=== PATIENT | male | born 1955 | race Caucasian/White ===

== ENCOUNTER 2021-05-02 10:14 | Outpatient (REF) | payer MEDICARE, SELFPAY ==
[2021-05-02 11:58] LABS: Alanine Aminotransferase 29 U/L (0-40); Albumin Level 4.5 g/dL (3.5-5.0); Alkaline Phosphatase 61 U/L (39-117); Anion Gap 12 (12-20); Aspartate Amino Transferase 34 U/L (5-37); Bilirubin Total 0.9 mg/dL (0.0-1.0); Blood Urea Nitrogen 14 mg/dL (9-16); Calcium 9.3 mg/dL (8.4-10.2); Carbon Dioxide 27 mmol/L (22-29); Chloride 104 mmol/L (96-108); Cholesterol 177 mg/dL; Estimated Glomerular Filt Rate > 60; Glucose Random 102 mg/dL (60-115); HDL Cholesterol 55 mg/dL; LDL Cholesterol Calculated 111 mg/dl; Potassium 4.4 mmol/L (3.3-5.1); Sodium 139 mmol/L (135-145); Total Protein 7.1 g/dL (6.5-8.0); Triglycerides 57 mg/dL
[2021-05-02 12:02] LABS: Prostate Specific Antigen Scr 3.17 ng/mL (<0.05-4.0)
== END 2021-05-02 10:15 | disposition home or self-care (01) ==
LOC: HO.HMGCLDS 10:14
PROVIDERS: PCP Internal Medicine; Visit Provider Internal Medicine
DX: Z12.5 Encounter for screening for malignant neoplasm of prostate (principal)
CPT/HCPCS: 36415; 80053; 80061; 84153

== ENCOUNTER 2022-01-01 16:15 | Emergency (ER) | payer MEDICARE, SELFPAY ==
[2022-01-01 16:38] VITALS: BP 139/72; PULSE 74; RESP 18; TEMP 36.7; O2SAT 97; BMI 23.8
--- NOTE | 2022-01-01 18:25 | ED_ITS ---
HPI - General Adult General Chief complaint: General Medical Stated complaint: allergies Time Seen by Provider: 01/01/22 18:18 Source: patient Mode of arrival: ambulatory Limitations: no limitations History of Present Illness HPI narrative: 66 yold male presents to the ED for allergic reaction. Patient presents to the ED for itchy rash on abdomen, trunk, and and legs after going into po[facility] [facility] 10 days ago. Patietn denies any coughing, lip/tongue swelling, fever, chills, or senstion of throat closing. Related Data Home Medications Medication Instructions Recorded Confirmed famotidine 10 mg tablet 5 mg PO DAILY PRN tab 04/29/20 05/02/21 Previous Rx's Medication Instructions Recorded diphenhydramine HCl 25 mg capsule 25 mg PO TID PRN 7 Days #21 cap 01/01/22 (Benadryl) famotidine 20 mg tablet (Pepcid) 20 mg PO BID 7 Days #14 tab 01/01/22 prednisone 20 mg tablet 60 mg PO DAILY 5 Days #15 tab 01/01/22 Allergies Allergy/AdvReac Type Severity Reaction Status Date / Time Penicillins [PENICILLINS] Allergy Unknown SWELLING Verified 01/01/22 16:38 Review of Systems Review of Systems: ithcy rash Yes all other systems are reviewed and are negative PMFSH Past Medical History Medical History Anxiety Anxiety BPH (benign prostatic hyperplasia) BPH (benign prostatic hyperplasia) Normal colonoscopy Family History Family History Father No problems noted. Mother No problems noted. Social History Social History Household Members: Spouse Advance Directives: No Advance Directives Information Provided: No Physical Exam ED Vital Signs: Vital Signs - 24 hr 01/01/22 16:38 01/01/22 19:04 Temperature 98.1 F 98 F Pulse Rate 74 70 Respiratory Rate 18 18 Blood Pressure 139/72 132/84 Pulse Oximetry 97 98 BMI result Body Mass Index 23.8 Const General: cooperative, healthy appearing, comfortable, no acute distress, well developed, alert, awake and Physically active Orientation/consciousness: patient oriented x3 HENMT Other: negative for any lip swelling, tongue swelling, or uvula swelling Head: Yes normal to inspection, Yes No palpable skull fracture present, Yes normocephalic, Yes atraumatic and No abrasion Eyes General: appearance normal, both eyes and all related structures Neck Neck: Yes normal visual inspection, Yes full ROM, Yes no lymphadenopathy, Yes no meningeal signs, Yes trachea midline, Yes supple, No anterior neck swelling and No tender Chest Chest palpation & inspection: normal inspection of the chest and normal palpation of entire chest wall Resp Effort & Inspection: normal respiratory effort and able to speak in complete sentences Auscultation: clear to auscultation bilaterally Cardio Jugular venous distension: no JVD Heart sounds: S1 normal heart sound present and S2 normal heart sound present GI Inspection: Yes normal to inspection and No abdominal wall ecchymosis Palpation (GI): Soft to palpation, not firm, nontender, no guarding and not rigid General: No CVA tenderness and Yes no CVA tenderness Back/Spine/Pelvis Back: no CVA tenderness, No CVA tenderness and No back tenderness Skin Other: Uticaria rash on trunk/back, and lower extremities. Neuro General: patient oriented x3, gait normal, no meningeal signs and CN's II-XI intact bilaterally Cranial nerves: Yes CN's II-XII intact bilaterally Extrem General: Yes normal to inspection and Yes full ROM Psych Appearance: grossly normal, well kempt and not disheveled Course Course Course Narrative: Uticaria. NO respiratory distress. no erythema multiforme bull's eye rash for tic Reevaluation(s) Reevaluation #1: Discharged with bendryl, pepcid and predniose Time: 18:48 Medical Decision Making [facility] Narrative Medical decision making narrative: uticaria, [place] Discharge Plan Discharge Clinical Impression: Allergic reaction, Allergy to poison madelyn Patient Disposition: Home, Self-Care Instructions: Poison [place] (ED), General Allergic Reaction (ED) Additional Instructions: Return to the ED for worsening rash, lip swelling, tongue swelling, sensation of throat closing, chest pain, fever, chills, or any other concerning symptoms. You will be discharged with meds. Please follow up with PCP Prescriptions: New famotidine [Pepcid] 20 mg tablet 20 mg PO BID 7 Days Qty: 14 0RF prednisone 20 mg tablet 60 mg PO DAILY 5 Days Qty: 15 0RF diphenhydramine HCl [Benadryl] 25 mg capsule 25 mg PO TID PRN (Reason: allergic reaction) 7 Days Qty: 21 0RF No Action famotidine 10 mg tablet 5 mg PO DAILY PRN0RF Referrals: Carmen Ly MD [Primary Care Provider] - (Allergic reaction. poison MADELYN) Interventions: ED Discharge Assessment Last Done: 01/01/22 19:05 Discharge Date/Time: 01/01/22 19:06 Print Language: Korean
[2022-01-01 19:04] VITALS: BP 132/84; PULSE 70; RESP 18; TEMP 36.6; O2SAT 98
== END 2022-01-01 19:06 | disposition home or self-care (01) ==
PROVIDERS: Emergency Provider Internal Medicine; PCP Internal Medicine
DX: L23.7 Allergic contact dermatitis due to plants, except food (principal)
CPT/HCPCS: 99283

== ENCOUNTER 2022-05-03 09:39 | Outpatient (REF) | payer MEDICARE, SELFPAY ==
[2022-05-03 11:13] LABS: MANUAL DIFF FLAG NO
[2022-05-03 11:14] LABS: Appearance Urine Clear; Color Urine Yellow; Glucose Urine UA Negative (Negative); Leukocyte Esterase Urine Negative (Negative); Nitrite Urine Negative (Negative); PH 6.5 (5.0-9.0); Specific Gravity - Urine 1.015 (1.005-1.025); Urine Blood Negative (Negative); Urine Ketones Negative (Negative); Urine Protein Negative (Neg-Trace)
[2022-05-03 11:16] LABS: Basophils Percent Auto 0.8 % (0-2); Eosinophils Absolute Auto 0.1 X10*3/uL (0.0-0.4); Eosinophils Percent Auto 2.4 % (0-4); Hematocrit 43.8 % (42.0-52.0); Hemoglobin 15.3 g/dl (14.0-18.0); Lymphocytes Absolute Auto 1.3 X10*3/uL (1.2-4.9); Lymphocytes Percent Auto 33.8 % (20-40); Mean Corpuscular HGB Conc 34.9 g/dl (31.0-36.0); Mean Corpuscular Hemoglobin 31.6 pg (27.0-33.0); Mean Corpuscular Volume 90.5 fL (80.0-98.0); Mean Platelet Volume 9.4 fL (9.4-12.4); Monocytes Absolute Auto 0.4 X10*3/uL (0.1-1.2); Monocytes Percent Auto 10.9 % (2-11); Neutrophils Percent Auto 52.1 % (45-73); Platelet Count 245 X10*3/uL (160-400); Red Blood Count 4.84 X10*6/uL (4.60-5.80); Red Cell Distribution Width 12.5 % (11.0-16.0); White Blood Count 3.8 X10*3/uL (4.8-10.8)
[2022-05-03 11:41] LABS: Alanine Aminotransferase 23 U/L (0-40); Albumin Level 4.4 g/dL (3.5-5.0); Alkaline Phosphatase 56 U/L (39-117); Anion Gap 13 (12-20); Aspartate Amino Transferase 32 U/L (5-37); Bilirubin Total 0.5 mg/dL (0.0-1.0); Blood Urea Nitrogen 12 mg/dL (9-16); Calcium 9.5 mg/dL (8.4-10.2); Carbon Dioxide 29 mmol/L (22-29); Chloride 103 mmol/L (96-108); Cholesterol 174 mg/dL; Estimated Glomerular Filt Rate > 60; Glucose Fasting 101 mg/dL (60-99); HDL Cholesterol 57 mg/dL; LDL Cholesterol Calculated 105 mg/dl; Potassium 4.7 mmol/L (3.3-5.1); Sodium 140 mmol/L (135-145); Triglycerides 62 mg/dL
[2022-05-03 12:03] LABS: PSA,Total (Free>4and<10) 2.38 ng/mL (0.00-4.00)
== END 2022-05-03 09:40 | disposition home or self-care (01) ==
LOC: HO.HMGCLDS 09:39
PROVIDERS: PCP Internal Medicine; Visit Provider Internal Medicine
DX: Z00.00 Encounter for general adult medical examination without abnormal findings (principal); N40.0 Benign prostatic hyperplasia without lower urinary tract symptoms; F41.9 Anxiety disorder, unspecified; Z12.5 Encounter for screening for malignant neoplasm of prostate
CPT/HCPCS: 36415; 80053; 80061; 81003; 84153; 85025

== ENCOUNTER 2023-01-31 09:14 | Emergency (ER) | payer MEDICARE, SELFPAY ==
[2023-01-31 09:16] VITALS: BP 133/83; PULSE 66; RESP 18; TEMP 36.6; O2SAT 97; BMI 24.3
[2023-01-31 09:28] VITALS: BP 145/77; PULSE 64; RESP 18; TEMP 36.4; O2SAT 96
--- NOTE | 2023-01-31 09:28 | ED.DIZZY ---
HPI - Dizziness General Chief Complaint: Dizziness Stated Complaint: Nausea Dizzy Time Seen by Provider: 01/31/23 09:26 Source: patient Mode of arrival: ambulatory Limitations: language barrier History of Present Illness HPI Narrative: HIstory obtained by field trainer. Patient has had dizziness since November. He has felt the room spinning and felt like he was swaying for one week in November. The patient was placed on meclizine one week ago. Did not have imaging of his brain. Patient is active and runs but has not felt well since November. MD elicited complaint: dizziness Timing: sudden onset Severity: mild Description: sense of movement and room spinning Associated symptoms: nausea and diaphoresis Related Data Home Medications Medication Instructions Recorded Confirmed famotidine 10 mg tablet 5 mg PO DAILY PRN 04/29/20 01/24/23 Previous Rx's Medication Instructions Recorded diphenhydramine HCl 25 mg capsule 25 mg PO TID PRN allergic reaction 01/01/22 (Benadryl) 7 days #21 caps famotidine 20 mg tablet (Pepcid) 20 mg PO BID 7 days #14 tabs 01/01/22 meclizine 25 mg tablet 25 mg PO BID PRN dizziness 15 days 01/24/23 #30 tabs Allergies Allergy/AdvReac Type Severity Reaction Status Date / Time Penicillins [PENICILLINS] Allergy Unknown SWELLING Verified 01/31/23 09:20 Review of Systems Review of Systems: Yes all other systems are reviewed and are negative Neurologic: Denies Sensory deficit (Neuro) [facility] Past Medical History Medical History Anxiety Anxiety BPH (benign prostatic hyperplasia) BPH (benign prostatic hyperplasia) Normal colonoscopy Family History Family History Father No problems noted. Mother No problems noted. Social History Social History Household Members: Spouse Housing: House Alcohol intake: current Alcohol intake frequency: holidays/special occasions only Patient Tobacco Use Status: Never used Tobacco Smoked in Last 30 Days: No e-Cigarette/Vaping Use: Never Used Use of substances other than those prescribed or required for medical reasons: No Advance Directives: No Advance Directives Information Provided: Yes Current occupational status: retired Cognitive needs: No Hearing needs: No Vision needs: Yes Physical Exam Vital Signs: Vital Signs: Last Vital Signs Temp 97.6 F 01/31/23 09:28 Pulse 91 01/31/23 11:43 Resp 18 01/31/23 11:43 BP 150/65 H 01/31/23 11:43 Pulse Ox 97 01/31/23 11:43 O2 Del Method Room Air 01/31/23 11:43 BMI result Body Mass Index 24.3 Const: General: healthy appearing Nutritional Appearance: average body habitus Orientation/consciousness: oriented to person and patient oriented x3 Limitations: no limitations HEENT: Other: right TM with old scarring Head: Yes normal to inspection Ears: external ears normal General nose exam: Normal external nose present Mouth: Normal oral and palatal mucosa present and oropharynx normal Throat: Yes posterior oropharynx normal Eyes: General: appearance normal, both eyes and all related structures Neck: Other: supple Neck: Yes normal visual inspection Chest: Chest palpation & inspection: normal inspection of the chest Resp: Auscultation: clear to auscultation bilaterally Cardio: Jugular venous distension: no JVD Rate: regular rate Rhythm: regular rhythm Heart sounds: S1 normal heart sound present and S2 normal heart sound present GI: Inspection: Yes normal to inspection Palpation (GI): Soft to palpation, nontender and No hepatosplenomegaly present Auscultation: normal bowel sounds : General: Yes no CVA tenderness Back/Spine/Pelvis: Back: no CVA tenderness Skin: General skin exam: no rashes or lesions noted Neuro: Other: positive Barrone maneuver, with rotatory nystagmus when he looks to his right General: oriented to person and patient oriented x3 Cranial nerves: Yes CN's II-XII intact bilaterally Motor exam (neuro): 5/5 motor strength present throughout Sensory Exam: No Sensory deficit (Neuro) Extrem: General: Yes normal to inspection Psych: Appearance: grossly normal Medications Administered Discontinued Medications Generic Name Dose Route Start Last Admin Trade Name Vaibhavq PRN Reason Stop Dose Admin Meclizine HCl 50 mg 01/31/23 09:43 01/31/23 10:01 Meclizine Hcl 25 Mg Tablet PO 01/31/23 09:44 50 mg ONCE ONE Administration Medical Decision Making Differential Diagnosis Differential Diagnoses: The differential diagnosis associated with the presentation includes (positional vertigo, brain tumor, brain bleed, electrolyte abnormality) Admission/Observation Consideration of admission/observation: Escalation of care including admission/observation considered (upon arrival this 67yo male with worsening vertigo was considered for admission) Lab Data MDM Lab Attestation statement: I reviewed the patient's lab results. (no electrolyte abnormalities, no anemia) 01/31/23 10:00 01/31/23 10:00 Labs: Lab Results 01/31/23 01/31/23 Range/Units 10:00 10:00 WBC 5.0 (4.8-10.8) X10*3/uL RBC 4.89 (4.60-5.80) X10*6/uL Hgb 15.6 (14.0-18.0) g/dl Hct 44.6 (42.0-52.0) % MCV 91.2 (80.0-98.0) fL MCH 31.9 (27.0-33.0) pg MCHC 35.0 (31.0-36.0) g/dl RDW 12.3 (11.0-16.0) % Plt Count 193 (160-400) X10*3/uL MPV 9.0 L (9.4-12.4) fL Immature Gran % (Auto) 0.2 (0.0-0.4) % Neut % (Auto) 69.9 (45-73) % Lymph % (Auto) 20.5 (20-40) % Dane % (Auto) 7.8 (2-11) % Eos % (Auto) 1.0 (0-4) % Baso % (Auto) 0.6 (0-2) % Lymph # (Auto) 1.0 L (1.2-4.9) X10*3/uL Dane # (Auto) 0.4 (0.1-1.2) X10*3/uL Eos # (Auto) 0.1 (0.0-0.4) X10*3/uL Baso # (Auto) 0.0 (0.0-0.2) X10*3/uL Abs Immat Gran (auto) 0.01 (0.00-0.03) X10*3/uL Absolute Neuts (auto) 3.5 (2.0-8.3) x10*3/uL Absolute Nucleated RBC 0.000 (0.0-0.012) X10*3/uL Nucleated RBC % (auto) 0.0 (0.0-0.2) /100WBC Sodium 137 (135-145) mmol/L Potassium 3.9 (3.3-5.1) mmol/L Chloride 105 (96-108) mmol/L Carbon Dioxide 24 (22-29) mmol/L Anion Gap 12 (12-20) BUN 14 (9-16) mg/dL Creatinine 0.88 (0.5-1.4) mg/dL Estim Creat Clear Calc 77.7 Estimated GFR > 60 Random Glucose 106 (60-115) mg/dL Calcium 9.2 (8.4-10.2) mg/dL Independent Interpretation I performed an independent interpretation of an: EKG (sinus 65, RBBB, no st or twave chagnes) and CT Scan (no mass or bleed) Radiology Impression Discussion of test interpretation with radiology: I have reviewed the radiologist's reading. (no mass or bleed) Independent Historian Clinical information obtained from an independent historian. History obtained from or confirmed by: Spouse Discharge Plan Discharge Clinical Impression: BPPV (benign paroxysmal positional vertigo) Patient Disposition: Home, Self-Care Instructions: Benign Paroxysmal Positional Vertigo (ED) Prescriptions: No Action famotidine [Pepcid] 20 mg tablet 20 mg PO BID 7 Days Qty: 14 0RF diphenhydramine HCl [Benadryl] 25 mg capsule 25 mg PO TID PRN (Reason: allergic reaction) 7 Days Qty: 21 0RF famotidine 10 mg tablet 5 mg PO DAILY PRN meclizine 25 mg tablet 25 mg PO BID PRN (Reason: dizziness) 15 Days Qty: 30 0RF Referrals: Basil Haro [Physician] - 5 days
[2023-01-31 09:42] VITALS: BP 160/80; PULSE 94; RESP 18; O2SAT 96
--- NOTE | 2023-01-31 09:50 | PC.NURSE ---
Patient alert and oriented, via weather anchor states that since november he has been having episodes where he feels lightheaded and dizzy. states received bad news about a medical diagnosis of his daughter at the same time the symptoms started. States it was worse in november than it is now but today was lightheaded, dizzy, and swaying on feet. Has been to pcp to work up issue and meclizine help. Reports hearing is not as good as it used to be. Denies chest pain or sob. Denies any head trauma or falls.
[2023-01-31 10:36] LABS: Anion Gap 12 (12-20); Blood Urea Nitrogen 14 mg/dL (9-16); Calcium 9.2 mg/dL (8.4-10.2); Carbon Dioxide 24 mmol/L (22-29); Chloride 105 mmol/L (96-108); Creatinine Clr Calc Pharmacy 77.7; Estimated Glomerular Filt Rate > 60; Glucose Random 106 mg/dL (60-115); Potassium 3.9 mmol/L (3.3-5.1); Sodium 137 mmol/L (135-145)
[2023-01-31 11:43] VITALS: BP 150/65; PULSE 91; RESP 18; O2SAT 97
--- NOTE | 2023-01-31 11:44 | PC.NURSE ---
Patient reports less dizziness after taking meclizine. Continues to deny pain or discomfort. VSS.
== END 2023-01-31 13:08 | disposition home or self-care (01) ==
PROVIDERS: Emergency Provider Emergency Medicine; PCP Internal Medicine
DX: H81.10 Benign paroxysmal vertigo, unspecified ear (principal)
CPT/HCPCS: 36415; 70450; 80048; 85025; 93005; 99284

== ENCOUNTER 2023-05-04 10:18 | Outpatient (AMB) | payer MEDICARE, SELFPAY ==
[2023-05-04 10:20] VITALS: BP 132/74; PULSE 80; O2SAT 98; BMI 24.3
--- NOTE | 2023-05-04 10:20 | MHC.PC.OV ---
Vital Signs 05/04/23 10:20 Height 5 ft 8 in Weight 160 lb BMI 24.3 BP 132/74 Blood Pressure Location Lt brachial Position Sitting Pulse 80 Pulse Source Pulse Oximeter Pulse Oximetry (%) 98 Oxygen Delivery Method Room Air Intake Visit Reasons: Annual PE Intake Note: Pt is here today for PE. Pt states that he has been having dizziness and feeling out of balance since November. Pt was seen in a walk in. Allergies Penicillins [PENICILLINS] Allergy (Unknown, Verified 05/04/23 10:23) SWELLING Medication List - Last Reconciled 05/04/23 by Carmen Ly MD diphenhydramine HCl (Benadryl) 25 mg PO TID PRN 7 days tadalafil 5 mg PO Q OTHER DAY Tobacco use date assessed: 05/04/23 Fall risk assessment: No Falls in past year Last assessed Fall Risk: 05/04/23 Dental Screening Dental Screen Date: 05/04/23 Did you have a dental visit in the last 12 months?: Yes Did you have a dental problem in the last 6 months where you did not have access to dental care?: No Was dental information given to patient?: Patient has dentist HPI Annual PE HPI Details Pt presents for PE. Pt c/o persistent vertigo symptoms since January. ER and ENT evaluation were negative. BPH is stable on Tadalafil. Patient's daughter was diagnosed with lymphoma in November. [facility] Medical History Anxiety BPH (benign prostatic hyperplasia) BPH (benign prostatic hyperplasia) Anxiety Normal colonoscopy Family History Father No problems noted. Mother No problems noted. Social History Household Members: Spouse Housing: House Alcohol intake: current Alcohol intake frequency: holidays/special occasions only Patient Tobacco Use Status: Never used Tobacco e-Cigarette/Vaping Use: Never Used Current occupational status: retired Cognitive needs: No Hearing needs: No Vision needs: Yes Questionnaire PHQ-9 Over the last 2 weeks, how often have you been bothered by any of the following problems? 1. Little interest or pleasure in doing things: not at all 2. Feeling down, depressed, or hopeless: not at all 3. Trouble falling or staying asleep, or sleeping too much: several days 4. Feeling tired or having little energy: several days 5. Poor appetite or overeating: several days 6. Feeling bad about yourself - or that you are a failure or have let yourself or your family down: not at all 7. Trouble concentrating on things, such as reading the newspaper or watching television: more than half the days 8. Moving or speaking so slowly that other people could have noticed. Or the opposite - being so fidgety or restless that you have been moving around a lot more than usual: not at all 9. Thoughts that you would be better off or of hurting yourself in some way: not at all Total score: 5 Depression Screening Interpretation: Negative Depression Screening Done: Yes Source: Developed by Drs. Reinaldo Eduardo, Surekha Grace, Hang Nolasco and colleagues, with an educational shira from [employer]. Thrive Questionnaire Date Thrive assessed: 05/04/23 I am a: Patient What is your living situation today?: I have a steady place to live Within the past 12 months, did the food you bought not last and you didn't have the money to get more?: Never true Within the past 12 months, did you worry whether your food would run out before you got money to buy more?: Never true Do you have trouble paying for medicines?: No Do you have trouble getting transportation to medical appointments?: No Do you have trouble paying your heating and electricity bill?: No Do you have trouble taking care of your child, family member or friend?: No Do you have trouble with day-to-day activities such as bathing, preparing meals, shopping, managing finances, etc.?: No Are you currently unemployed and looking for a job?: No Are you interested in more education?: No Please select the resources that you would like help with: None Currently or been in a relationship where the following occur: no concerns reported AUDIT C Alcohol Use Questionnaire (AUDIT-C) 1. How often do you have a drink containing alcohol?: Never 3. How often do you have six or more drinks on one occasion?: Never Total Score: 0 MALLORY-7 AMB Questionnaire MALLORY-7 Date MALLORY - 7 assessed: 05/04/23 Feeling nervous, anxious, or on edge: 0 = Not at all Not being able to stop or control worryin = Not at all Worrying too much about different things: 0 = Not at all Trouble relaxin = Not at all Being so restless that it is hard to sit still: 0 = Not at all Becoming easily annoyed or irritable: 0 = Not at all Feeling afraid as if something awful might happen: 0 = Not at all Total MALLORY-7 score (0-4 normal; 5-9 mild; 10-14 moderate; 15-21 severe): 0 Source: Developed by Drs. Reinaldo Eduardo, Surekha Grace, Hang Nolasco and colleagues, with an educational shira from [employer]. Review of Systems Const All systems reviewed & are unremarkable except as noted in HPI and below Reports no additional complaints Eyes Reports no additional complaints ENT Reports no additional complaints Card Reports no additional complaints Resp Reports no additional complaints GI Reports no additional complaints Reports no additional complaints Physical exam (Primary Care) Vital Signs: Last Vital Signs Pulse 80 05/04/23 10:20 BP 132/74 05/04/23 10:20 Pulse Ox 98 05/04/23 10:20 Oxygen Delivery Method Room Air 05/04/23 10:20 BMI result Body Mass Index 24.3 Tobacco/Smoking Status: Tobacco use Status Tobacco use date assessed 05/04/23 05/04/23 10:26 Patient Tobacco Use Status Never used Tobacco 05/04/23 10:26 e-Cigarette/Vaping Use Never Used 05/04/23 10:26 PHQ-9: PHQ-9 Score PHQ-9: Total score 5 05/04/23 10:26 Depression Screening Interpretation: Negative Thrive Assessment: Date of Thrive Assessment Date Thrive assessed 05/04/23 05/04/23 10:26 Currently or been in a relationship where the following occur: no concerns reported Const General: no acute distress HENMT Head: Yes normal to inspection Ears: hearing grossly normal bilaterally General nose exam: Normal external nose present Face and sinus: Yes normal facial exam Mouth: Normal oral and palatal mucosa present Throat: Yes posterior oropharynx normal Eyes General: appearance normal, both eyes and all related structures Pupils: Equal, round and reactive pupils present Neck Neck: Yes no lymphadenopathy and Yes supple Resp Effort & Inspection: normal respiratory effort Auscultation: clear to auscultation bilaterally Cardio Rhythm: regular rhythm Heart sounds: S1 normal heart sound present and S2 normal heart sound present GI Inspection: Yes normal to inspection Palpation (GI): Soft to palpation Percussion: Yes normal to percussion Auscultation: normal bowel sounds Male General Exam: Yes normal external exam Neuro Cranial nerves: Yes Equal, round and reactive pupils present Assessment and Plan Assessment & Plan (1) BPPV (benign paroxysmal positional vertigo): Code(s): H81.10 - Benign paroxysmal vertigo, unspecified ear Plan: refer to vestibular therapy (2) Annual physical exam: Code(s): Z00.00 - Encounter for general adult medical examination without abnormal findings Plan: Well-balanced diet regular exercise discussed with the patient. He will schedule appointment with GI Dr. Laureano for screening colonoscopy Orders: Orders PT Evaluation and Treatment Today H81.10 - Benign paroxysmal vertigo, unspecified ear Referrals Gastroenterology Referral Z00.00 - Encounter for general adult medical examination without abnormal findings Coding Level of Care Code Est Pt Prev Care >65y(81320) Diagnoses BPPV (benign paroxysmal positional vertigo) H81.10 Annual physical exam Z00.00
== END 2023-05-04 11:05 | disposition home or self-care (01) ==
PROVIDERS: Visit Provider Internal Medicine
DX: Z00.00 Encounter for general adult medical examination without abnormal findings (principal); H81.10 Benign paroxysmal vertigo, unspecified ear
CPT/HCPCS: 99397

== ENCOUNTER → 2023-07-17 14:47 | Outpatient (BNVA) | payer MEDICARE, SELFPAY | PROVIDERS: PCP Internal Medicine; Visit Provider Nurse Practitioner Family ==

== ENCOUNTER 2023-12-10 07:37 | Day surgery (SDC) | payer MEDICARE, SELFPAY ==
[2023-12-07 07:42] VITALS: BMI 25.1
--- NOTE | 2023-12-10 08:25 | MHC.SHP ---
Pre-Procedural Eval Section A - 24 Hr Update-Section A only Date of Service: 12/10/23 The patient is an INPATIENT: No The patient has been examined within 24 hours of the surgical procedure. The History & Physical has been completed within 30 days and I have reviewed it.: No Section B - Complete if H&P > 30 days Chief Complaint: Colon cancer screening Relevant Family History (Specify if Yes): No Relevant Social History: None Present Medications: see Short Stay Collaborative assessment Medical History: Significant History (BPH (benign prostatic hyperplasia) Anxiety Normal colonoscopy) History of Previous Operations: Relevant previous surgery/procedure and date(s) (History of colonoscopy) Allergies: Allergies Allergy/AdvReac Type Severity Reaction Status Date / Time Penicillins [PENICILLINS] Allergy Unknown SWELLING Verified 07/17/23 14:59 Review of Systems Sugical H&P ROS: Negative: Constitution, Cardiovascular, Respiratory and Gastrointestinal Exam Surgical H&P Exam: Normal: Heart, Normal: Lungs, Normal: Extremities and Normal: Abdomen Plan Diagnosis/Plan: Unchanged I have reviewed the history and physical and performed a pertinent physical examination on my patient. No changes have occurred unless specified. Time Spent With Patient Time: Total time managing care of this patient today ____ minutes.
[2023-12-10 08:36] VITALS: BMI 24.3
[2023-12-10 08:49] VITALS: BP 142/77; PULSE 70; RESP 16; TEMP 37.1; O2SAT 98
--- NOTE | 2023-12-10 08:49 | HO.ANESPROP2 ---
[facility] Active Problems Active Problems: All Active Problems BPPV (benign paroxysmal positional vertigo) (Acute) Annual physical exam (Acute) Anxiety (Acute) BPH (benign prostatic hyperplasia) (Acute) Past Medical History Medical History Anxiety BPH (benign prostatic hyperplasia) Normal colonoscopy Family History Family History Father No problems noted. Mother No problems noted. Family history of problems with anesthesia: No Surgical History Surgical History Hx of colonoscopy History of Problems with Anesthesia: No Social History Social History Household Members: Spouse Housing: House Alcohol intake: current Alcohol intake frequency: holidays/special occasions only Patient Tobacco Use Status: Never used Tobacco e-Cigarette/Vaping Use: Never Used Use of substances other than those prescribed or required for medical reasons: No Are you DNR?: No Advance Directives: No Advance Directives Information Provided: Yes Current occupational status: retired Cognitive needs: No Hearing needs: No Vision needs: Yes Meds Allergies Allergy/AdvReac Type Severity Reaction Status Date / Time Penicillins [PENICILLINS] Allergy Unknown SWELLING Verified 12/10/23 08:32 Home Medications ?Medication ?Instructions ?Recorded ?Confirmed ?Last Taken ?Type tadalafil 2.5 mg tablet 2.5 mg PO DAILY 07/17/23 12/10/23 Unknown History Exam Height,Weight and Vital Signs: Height 5 ft 8 in Weight 72.575 kg Airway Mallampati Class: II (permanent upper bridge) TM Dist: >3cm Neck ROM: Full Heart: rrr Lungs: cta Assessment and Plan Assessment Anesthesia Assessment: Anesthesia Plan Discussed and Chart Reviewed Final Anesthetic Review Family History of Problems with Anesthesia: No History of Problems with Anesthesia: No NPO: Yes ASA Class: II Final Preanesthetic Review: No Changes in Pt Med Stat, Meds/Allgs Chart Reviewed and Consent Obtained/Reviewed Patient Risk: Low Procedure Risk: Low Anesthetic Plan Anesthetic Plan: MAC: Disposition: Standard PACU
[2023-12-10] MEDS: Lactated Ringers 1,000 ML 50 ML IVCONT (08:58)
--- NOTE | 2023-12-10 10:26 | HO.OPN-COLON ---
Colonoscopy Operative Note Operative Note Date of Service: 12/10/23 Narrative: COLONOSCOPY TILL CECUM WITH SNARE POLYPECTOMY AND SUBMUCOSAL INJECTION Pre-op diagnosis: Colon cancer screening (3rd colonoscopy). Post-op diagnosis:? Colon polyps, Diverticulosis, hemorrhoids Endoscopist:? Agus Bates MD Anesthesia:?MAC Consent: Indications for the procedure and potential complications of bleeding, perforation, reaction to medications and missed diagnosis were discussed with the patient and informed consent was obtained. Instrument: Olympus CF H 190 L variable stiffness adult colonoscope Monitoring: Vital signs and clinical assessment, intermittent blood pressure monitoring, continuous EKG monitoring, Pulse oximetry and Carbon Dioxide monitoring were done throughout the procedure. Please see anesthesia flowsheet. Colon withdrawl time was 17 minutes. Procedure: The patient was placed in the left lateral decubitis position and pre-procedure medications were administered. After a digital rectal examination of the ano-rectum, the video colonoscope was inserted into the rectum and advanced through the colon to the cecum. The colonoscope was slowly withdrawn in a retrograde panoramic fashion and the colon mucosa was carefully examined including a retroflexed view of the rectum. Findings and interventions are described below. Procedure Difficulty: without difficulty Findings: Terminal Ileum: Not evaluated Cecum: Normal Ascending Colon: A 12-15 mm flat polyp in the proximal AC. Polyp was raised with 2 cc of [place] and removed with a stiff hot snare Transverse Colon: Normal Descending Colon: Moderate diverticulosis Sigmoid Colon: A 10 mm sessile polyp - removed with a hot snare. Severe diverticulosis with luminal narrowing Rectum: Normal Ano-rectum: Large internal hemorrhoids Colon preparation: Good after some irrigation. [place] Bowel Preparation Scale Right colon; 2 Transverse colon: 2 Left colon; 2 (0 = Unprepared colon segment with mucosa not seen due to solid stool that cannot be cleared. 1 = Portion of mucosa of the colon segment seen, but other areas of the colon segment not well seen due to staining, residual stool and/or opaque liquid. 2 = Minor amount of residual staining, small fragments of stool and/or opaque liquid, but mucosa of colon segment seen well. 3 = Entire mucosa of colon segment seen well with no residual staining, small fragments of stool or opaque liquid) Impression and Post Procedure Diagnosis: Colonoscopy Findings: Two medium sized polyps were removed Moderate to severe diverticulosis seen in the left colon Large hemorrhoids on retroflexed exam. Plan: I will send a letter with biopsy results. Repeat Colonoscopy in 3-5 years if polyps are adenomatous and 10 year if polyps are hyperplastic. Above findings were reviewed with the patient and relevant handouts were given and the discharge area.
[2023-12-10 10:28] VITALS: BP 94/55; PULSE 71; RESP 16; TEMP 36.2; O2SAT 95
[2023-12-10 10:42] VITALS: BP 113/68; PULSE 60; RESP 12; O2SAT 97
[2023-12-10 10:57] VITALS: BP 137/82; PULSE 69; RESP 14; TEMP 36.4; O2SAT 97
== END 2023-12-10 11:37 | disposition home or self-care (01) ==
PROVIDERS: PCP Internal Medicine; Visit Provider Internal Medicine Gastroenterology
PROC: 0DJD8ZZ Inspection of Lower Intestinal Tract, Via Natural or Artificial Opening Endoscopic (ICD-10-PCS; CPT 45378; principal; 2023-12-10 09:20)
DX: Z12.11 Encounter for screening for malignant neoplasm of colon (principal); D12.2 Benign neoplasm of ascending colon; D12.5 Benign neoplasm of sigmoid colon; K57.30 Diverticulosis of large intestine without perforation or abscess without bleeding; K64.8 Other hemorrhoids; Z88.0 Allergy status to penicillin
CPT/HCPCS: 45385; 45381; 88305; J2704

== ENCOUNTER → 2023-12-10 07:37 | Outpatient (BNV) | payer MEDICARE, SELFPAY | PROVIDERS: PCP Internal Medicine; Visit Provider Internal Medicine Gastroenterology | DX: Z12.11 Encounter for screening for malignant neoplasm of colon (principal); K63.5 Polyp of colon; K57.90 Diverticulosis of intestine, part unspecified, without perforation or abscess without bleeding; K64.8 Other hemorrhoids | CPT/HCPCS: 45381; 45385 ==

== ENCOUNTER 2024-04-16 09:38 | Outpatient (AMB) | payer MEDICARE, SELFPAY ==
[2024-04-16 09:39] VITALS: BP 124/74; PULSE 63; O2SAT 99; BMI 24.9
--- NOTE | 2024-04-16 09:39 | A.OFFPC_ITS ---
Vital Signs 04/16/24 09:39 Height 5 ft 8 in Weight 164 lb BMI 24.9 BP 124/74 Blood Pressure Location Lt brachial Position Sitting Pulse 63 Pulse Source Pulse Oximeter Pulse Oximetry (%) 99 Oxygen Delivery Method Room Air Intake Visit Reasons: Anxiety Intake Note: Pt is here today for a sick visit. Pt c/o increased anxiety to the point where he can not sleep at night. Allergies Penicillins [PENICILLINS] Allergy (Unknown, Verified 04/16/24 09:51) SWELLING Medication List - Last Reconciled 04/16/24 by Carmen Ly MD mirtazapine 7.5 mg PO BEDTIME tadalafil 2.5 mg PO DAILY Tobacco use date assessed: 04/16/24 Fall risk assessment: No Falls in past year Last assessed Fall Risk: 04/16/24 Dental Screening Dental Screen Date: 04/16/24 Did you have a dental visit in the last 12 months?: Yes Did you have a dental problem in the last 6 months where you did not have access to dental care?: No Was dental information given to patient?: Patient has dentist HPI Anxiety HPI Details Pt c/o insomnia, decreased appetite and anxiety worse for 2 weeks but chronic for years since his son's . Pt denies depression or suicide ideation. Patient tried psychotherapy in the past but did not find it helpful . he exercises regularly [facility] Medical History (Updated 04/16/24 @ 10:14 by Carmen Ly MD) Anxiety BPH (benign prostatic hyperplasia) Normal colonoscopy Surgical History Hx of colonoscopy Family History Father No problems noted. Mother No problems noted. Social History Household Members: Spouse Housing: House Alcohol intake: current Alcohol intake frequency: holidays/special occasions only Patient Tobacco Use Status: Never used Tobacco e-Cigarette/Vaping Use: Never Used service: No Current occupational status: retired Cognitive needs: No Hearing needs: No Vision needs: Yes Questionnaire PHQ-9 Over the last 2 weeks, how often have you been bothered by any of the following problems? 1. Little interest or pleasure in doing things: not at all 2. Feeling down, depressed, or hopeless: not at all 3. Trouble falling or staying asleep, or sleeping too much: not at all 4. Feeling tired or having little energy: not at all 5. Poor appetite or overeating: not at all 6. Feeling bad about yourself - or that you are a failure or have let yourself or your family down: not at all 7. Trouble concentrating on things, such as reading the newspaper or watching television: not at all 8. Moving or speaking so slowly that other people could have noticed. Or the opposite - being so fidgety or restless that you have been moving around a lot more than usual: not at all 9. Thoughts that you would be better off or of hurting yourself in some way: not at all Total score: 0 Depression Screening Interpretation: Negative Depression Screening Done: Yes 29120 - PHQ-9 Billing: Yes Source: Developed by Drs. Reinalod Eduardo, Surekha Grace, Hang Nolasco and colleagues, with an educational shira from [employer]. Thrive Questionnaire Date Thrive assessed: 04/16/24 I am a: Patient What is your living situation today?: I have a steady place to live Within the past 12 months, did the food you bought not last and you didn't have the money to get more?: Never true Within the past 12 months, did you worry whether your food would run out before you got money to buy more?: Never true Do you have trouble paying for medicines?: No Do you have trouble getting transportation to medical appointments?: No Do you have trouble paying your heating and electricity bill?: No Do you have trouble taking care of your child, family member or friend?: No Do you have trouble with day-to-day activities such as bathing, preparing meals, shopping, managing finances, etc.?: No Are you currently unemployed and looking for a job?: No Are you interested in more education?: No Please select the resources that you would like help with: None THRIVE Score: 0 AUDIT C Alcohol Use Questionnaire (AUDIT-C) 1. How often do you have a drink containing alcohol?: Never 3. How often do you have six or more drinks on one occasion?: Never Total Score: 0 MALLORY-7 AMB Questionnaire MALLORY-7 Date MALLORY - 7 assessed: 04/16/24 Feeling nervous, anxious, or on edge: 2 = More than half the days Not being able to stop or control worryin = More than half the days Worrying too much about different things: 2 = More than half the days Trouble relaxin = Several days Being so restless that it is hard to sit still: 0 = Not at all Becoming easily annoyed or irritable: 0 = Not at all Feeling afraid as if something awful might happen: 0 = Not at all Total MALLORY-7 score (0-4 normal; 5-9 mild; 10-14 moderate; 15-21 severe): 7 Source: Developed by Drs. Reinaldo Eduardo, Surekha Grace, Hang Nolasco and colleagues, with an educational shira from [employer]. MALLORY-7 Assessment Billing MALLORY-7 Assessment Tool: MALLORY-7 Assessment 04954 Review of Systems Const All systems reviewed & are unremarkable except as noted in HPI and below Eyes Reports no additional complaints ENT Reports no additional complaints Card Reports no additional complaints Resp Reports no additional complaints GI Reports no additional complaints Reports no additional complaints Physical exam (Primary Care) Vital Signs: Last Vital Signs Pulse 63 04/16/24 09:39 BP 124/74 04/16/24 09:39 Pulse Ox 99 04/16/24 09:39 Oxygen Delivery Method Room Air 04/16/24 09:39 BMI result Body Mass Index 24.9 Tobacco/Smoking Status: Tobacco use Status Tobacco use date assessed 04/16/24 04/16/24 09:45 Patient Tobacco Use Status Never used Tobacco 04/16/24 09:45 e-Cigarette/Vaping Use Never Used 04/16/24 09:40 PHQ-9: PHQ-9 Score PHQ-9: Total score 0 04/16/24 09:54 Depression Screening Interpretation: Negative Thrive Assessment: Date of Thrive Assessment Date Thrive assessed 04/16/24 04/16/24 09:54 Const General: no acute distress HENMT Head: Yes normal to inspection Ears: hearing grossly normal bilaterally General nose exam: Normal external nose present Mouth: Normal oral and palatal mucosa present Throat: Yes posterior oropharynx normal Neck Neck: Yes supple Resp Effort & Inspection: normal respiratory effort Auscultation: clear to auscultation bilaterally Cardio Rhythm: regular rhythm Heart sounds: S1 normal heart sound present and S2 normal heart sound present GI Inspection: Yes normal to inspection Palpation (GI): Soft to palpation Percussion: Yes normal to percussion Auscultation: normal bowel sounds Assessment and Plan Assessment & Plan (1) Anxiety: Code(s): F41.9 - Anxiety disorder, unspecified Plan: Stress management, counseling, mindfulness and yoga discussed with the patient. Mirtazapine 7.5 mg q.h.s. will be started. Patient will return for physical in April with a fasting labs before (2) Annual physical exam: Code(s): Z00.00 - Encounter for general adult medical examination without abnormal findings Orders: Orders Comprehensive Henry. Panel Fast Today Z00.00 - Encounter for general adult medical examination without abnormal findings Lipid Panel Today Z00.00 - Encounter for general adult medical examination without abnormal findings Complete Blood Count Auto Diff Today Z00.00 - Encounter for general adult med ical examination without abnormal findings PSA,Total (Free>4and<10) Today Z00.00 - Encounter for general adult medical examination without abnormal findings UA w Microscopic Today Z00.00 - Encounter for general adult medical examination without abnormal findings Medications: New mirtazapine 7.5 mg PO BEDTIME 30 tabs 1RF Coding Level of Care Code Est Pt Level 3 (21395) Diagnoses Anxiety F41.9 Annual physical exam Z00.00 Additional Codes MALLORY-7 Assessment Billing - MALLORY-7 Assessment Tool: MALLORY-7 Assessment 71482 ([id number])
== END 2024-04-16 10:38 | disposition home or self-care (01) ==
PROVIDERS: PCP Internal Medicine; Visit Provider Internal Medicine
DX: F41.9 Anxiety disorder, unspecified (principal); Z00.00 Encounter for general adult medical examination without abnormal findings

== ENCOUNTER → 2024-04-16 09:38 | Outpatient (BNVA) | payer MEDICARE, SELFPAY | PROVIDERS: PCP Internal Medicine; Visit Provider Internal Medicine | DX: Z00.00 Encounter for general adult medical examination without abnormal findings (principal); F41.1 Generalized anxiety disorder | CPT/HCPCS: 96127; 99212 ==

== ENCOUNTER 2024-04-30 09:44 | Outpatient (REF) | payer MEDICARE, SELFPAY ==
[2024-04-30 13:39] LABS: MANUAL DIFF FLAG NO
[2024-04-30 13:48] LABS: Appearance Urine Clear; Color Urine Yellow; Glucose Urine UA Negative (Negative); Leukocyte Esterase Urine Negative (Negative); Nitrite Urine Negative (Negative); Specific Gravity - Urine 1.015 (1.005-1.025); Urine Blood Negative (Negative); Urine Ketones Negative (Negative); Urine Protein Negative (Neg-Trace)
[2024-04-30 13:56] LABS: Basophils Percent Auto 0.5 % (0-2); Eosinophils Absolute Auto 0.1 X10*3/uL (0.0-0.4); Hematocrit 47.3 % (42.0-52.0); Hemoglobin 15.8 g/dl (14.0-18.0); Lymphocytes Absolute Auto 1.5 X10*3/uL (1.2-4.9); Lymphocytes Percent Auto 38.6 % (20-40); Mean Corpuscular HGB Conc 33.4 g/dl (31.0-36.0); Mean Corpuscular Volume 92.9 fL (80.0-98.0); Mean Platelet Volume 9.7 fL (9.4-12.4); Monocytes Absolute Auto 0.4 X10*3/uL (0.1-1.2); Monocytes Percent Auto 10.6 % (2-11); Neutrophils Absolute Auto 1.9 x10*3/uL (2.0-8.3); Neutrophils Percent Auto 48.3 % (45-73); Platelet Count 246 X10*3/uL (160-400); Red Blood Count 5.09 X10*6/uL (4.60-5.80); Red Cell Distribution Width 12.4 % (11.0-16.0)
[2024-04-30 14:00] LABS: Bacteria Urine None Seen (None Seen); Hyaline Casts Urine 0-2 /LPF (0-2); RBC Urine 0-2 /HPF (0-2); Squamous Epithelial Cell Urine 0-2 /HPF (0-2); WBC Urine 0-5 /HPF (0-5)
[2024-04-30 14:07] LABS: Alanine Aminotransferase 23 U/L (0-40); Albumin Level 4.3 g/dL (3.5-5.0); Alkaline Phosphatase 56 U/L (39-117); Anion Gap 12 (12-20); Aspartate Amino Transferase 30 U/L (5-37); Bilirubin Total 0.9 mg/dL (0.0-1.0); Blood Urea Nitrogen 14 mg/dL (9-16); Calcium 9.3 mg/dL (8.4-10.2); Carbon Dioxide 27 mmol/L (22-29); Chloride 106 mmol/L (96-108); Cholesterol 172 mg/dL (<200); Estimated Glomerular Filt Rate > 60; Glucose Fasting 93 mg/dL (60-99); HDL Cholesterol 50 mg/dL (>40); LDL Cholesterol Calculated 108 mg/dL (<100); Potassium 4.6 mmol/L (3.3-5.1); Sodium 140 mmol/L (135-145); Total Protein 7.3 g/dL (6.5-8.0); Triglycerides 70 mg/dL (<150)
[2024-04-30 14:28] LABS: PSA,Total (Free>4and<10) 4.07 ng/mL (0.00-4.00)
[2024-05-01 12:13] LABS: Free Prostate Spec Ag 0.8 ng/mL; Percent Free Prostate Spec Ag 20 % (calc) (>25); Prostate Specific Ag Total 4.1 ng/mL (< OR = 4.0)
== END 2024-04-30 09:45 | disposition home or self-care (01) ==
LOC: HO.HMGCLDS 09:44
PROVIDERS: PCP Internal Medicine; Visit Provider Internal Medicine
DX: Z00.00 Encounter for general adult medical examination without abnormal findings (principal); Z12.5 Encounter for screening for malignant neoplasm of prostate
CPT/HCPCS: 36415; 80053; 80061; 81001; 84153; 84154; 85025

== ENCOUNTER 2024-05-05 09:22 | Outpatient (AMB) | payer MEDICARE, SELFPAY ==
--- NOTE | 2024-05-05 09:28 | MHC.PC.OV ---
Vital Signs 05/05/24 09:29 Height 5 ft 8 in Weight 162 lb BMI 24.6 BP 120/76 Blood Pressure Location Lt brachial Position Sitting Pulse 76 Pulse Source Pulse Oximeter Pulse Oximetry (%) 96 Oxygen Delivery Method Room Air Intake Visit Reasons: PE - see comments Intake Note: Pt is here today for PE. Allergies Penicillins [PENICILLINS] Allergy (Unknown, Verified 05/05/24 09:30) SWELLING Medication List - Last Reconciled 05/05/24 by Carmen Ly MD mirtazapine 7.5 mg PO BEDTIME tadalafil 2.5 mg PO DAILY Tobacco use date assessed: 05/05/24 Fall risk assessment: No Falls in past year Last assessed Fall Risk: 05/05/24 Dental Screening Dental Screen Date: 04/16/24 HPI PE - see comments HPI Details Pt presents for PE. Anxiety and insomnia improved on mirtazapine PFSH Medical History (Updated 05/05/24 @ 10:23 by Carmen Ly MD) Anxiety BPH (benign prostatic hyperplasia) Normal colonoscopy Surgical History Hx of colonoscopy Family History Father No problems noted. Mother No problems noted. Social History Household Members: Spouse Housing: House Alcohol intake: current Alcohol intake frequency: holidays/special occasions only Patient Tobacco Use Status: Never used Tobacco e-Cigarette/Vaping Use: Never Used service: No Current occupational status: retired Cognitive needs: No Hearing needs: No Vision needs: Yes Questionnaire Thrive Questionnaire Date Thrive assessed: 04/16/24 AUDIT C Alcohol Use Questionnaire (AUDIT-C) 1. How often do you have a drink containing alcohol?: Never 3. How often do you have six or more drinks on one occasion?: Never Total Score: 0 MALLORY-7 AMB Questionnaire MALLORY-7 Date MALLORY - 7 assessed: 04/16/24 Source: Developed by Drs. Reinaldo Eduardo, Surekha Grace, Hang Nolasco and colleagues, with an educational shira from [employer]. Review of Systems Const All systems reviewed & are unremarkable except as noted in HPI and below Eyes Reports no additional complaints ENT Reports no additional complaints Card Reports no additional complaints Resp Reports no additional complaints GI Reports no additional complaints Reports no additional complaints Physical exam (Primary Care) Vital Signs: Last Vital Signs Pulse 76 05/05/24 09:29 BP 120/76 05/05/24 09:29 Pulse Ox 96 05/05/24 09:29 Oxygen Delivery Method Room Air 05/05/24 09:29 BMI result Body Mass Index 24.6 Tobacco/Smoking Status: Tobacco use Status Tobacco use date assessed 05/05/24 05/05/24 09:31 Patient Tobacco Use Status Never used Tobacco 05/05/24 09:31 e-Cigarette/Vaping Use Never Used 05/05/24 09:29 Thrive Assessment: Date of Thrive Assessment Date Thrive assessed 04/16/24 05/05/24 09:29 Const General: no acute distress HENMT Head: Yes normal to inspection Ears: hearing grossly normal bilaterally General nose exam: Normal external nose present Mouth: Normal oral and palatal mucosa present Eyes General: appearance normal, both eyes and all related structures Neck Neck: Yes no lymphadenopathy and Yes supple Resp Effort & Inspection: normal respiratory effort Auscultation: clear to auscultation bilaterally Cardio Rhythm: regular rhythm Heart sounds: S1 normal heart sound present and S2 normal heart sound present GI Inspection: Yes normal to inspection Palpation (GI): Soft to palpation Percussion: Yes normal to percussion Auscultation: normal bowel sounds Coding Level of Care Code Est Pt Prev Care >65y(57577) Diagnoses Colon polyps K63.5 Annual physical exam Z00. Anxiety F41.9 Assessment & Plan Assessment & Plan (1) Colon polyps: Comment: 11/2023 TA and serrated adenoma, repeat 3 yrs, Dr. Bates Code(s): K63.5 - Polyp of colon Category: Medical Plan: f/u with GI (2) Annual physical exam: Code(s): Z00.00 - Encounter for general adult medical examination without abnormal findings Category: Medical Plan: Well-balanced diet regular physical activity discussed with the patient. (3) Anxiety: Code(s): F41.9 - Anxiety disorder, unspecified Category: Medical Plan: Continue mirtazapine for 6 months and follow-up Medications: Refilled mirtazapine 7.5 mg PO BEDTIME 90 tabs 1RF
[2024-05-05 09:29] VITALS: BP 120/76; PULSE 76; O2SAT 96; BMI 24.6
== END 2024-05-05 10:25 | disposition home or self-care (01) ==
PROVIDERS: PCP Internal Medicine; Visit Provider Internal Medicine
DX: K63.5 Polyp of colon (principal); Z00.00 Encounter for general adult medical examination without abnormal findings; F41.9 Anxiety disorder, unspecified

== ENCOUNTER → 2024-05-05 09:22 | Outpatient (BNVA) | payer MEDICARE, SELFPAY | PROVIDERS: PCP Internal Medicine; Visit Provider Internal Medicine | DX: Z00.01 Encounter for general adult medical examination with abnormal findings (principal); K63.5 Polyp of colon; F41.9 Anxiety disorder, unspecified | CPT/HCPCS: 99397 ==

== ENCOUNTER 2025-04-01 12:02 | Outpatient (AMB) | payer MEDICARE, SELFPAY ==
[2025-04-01 12:13] VITALS: BP 126/64; PULSE 68; TEMP 36.7; O2SAT 95; BMI 24.3
--- NOTE | 2025-04-01 12:13 | A.OFFPC_ITS ---
Vital Signs 04/01/25 12:13 Height 5 ft 8 in Weight 160 lb BMI 24.3 BP 126/64 Blood Pressure Location Lt brachial Position Sitting Pulse 68 Pulse Source Pulse Oximeter Temp 98.1 F Temp Source Oral Pulse Oximetry (%) 95 Oxygen Delivery Method Room Air Intake Visit Reasons: follow up Intake Note: Pt is here today for a follow up visit on R hip pain and lower back pain that goes down his leg and foot. Allergies Penicillins (PENICILLINS) Allergy (Unknown, Verified 04/01/25 12:18) SWELLING Medication List - Last Reconciled 04/01/25 by Carmen Ly MD mirtazapine 7.5 mg PO BEDTIME tadalafil 2.5 mg PO DAILY Tobacco use date assessed: 04/01/25 Fall risk assessment: No Falls in past year Last assessed Fall Risk: 04/01/25 Dental Screening Dental Screen Date: 04/01/25 Did you have a dental visit in the last 12 months?: Yes Did you have a dental problem in the last 6 months where you did not have access to dental care?: No Was dental information given to patient?: Patient has dentist HPI follow up HPI Details Pt presents c/o LBP radiating to R side and right SI joint worse when running or sitting for long time on and off for 2 months. Patient has been training for half marathon. Pt denies RLE weakness, change in bowel or bladder function. [facility] Medical History Anxiety BPH (benign prostatic hyperplasia) Normal colonoscopy Surgical History (Updated 04/01/25 @ 12:19 by GULSHAN Dial) History of hernia surgery Hx of colonoscopy Family History Father No problems noted. Mother No problems noted. Social History Household Members: Spouse Housing: House Alcohol intake: current Alcohol intake frequency: holidays/special occasions only Patient Tobacco Use Status: Never used Tobacco e-Cigarette/Vaping Use: Never Used service: No Current occupational status: retired Cognitive needs: No Hearing needs: No Vision needs: Yes Questionnaire Thrive Questionnaire Date Thrive assessed: 04/16/24 AUDIT C Alcohol Use Questionnaire (AUDIT-C) 1. How often do you have a drink containing alcohol?: Never 3. How often do you have six or more drinks on one occasion?: Never Total Score: 0 MALLORY-7 AMB Questionnaire MALLORY-7 Date MALLORY - 7 assessed: 04/16/24 Source: Developed by Drs. Reinaldo Eduardo, Surekha Grace, Hang Nolasco and colleagues, with an educational shira from [employer]. Review of Systems Const All systems reviewed & are unremarkable except as noted in HPI and below ENT Reports no additional complaints Card Reports no additional complaints Resp Reports no additional complaints GI Reports no additional complaints Reports no additional complaints Physical exam (Primary Care) Vital Signs: Last Vital Signs Temp 98.1 F 04/01/25 12:13 Pulse 68 04/01/25 12:13 BP 126/64 04/01/25 12:13 Pulse Ox 95 04/01/25 12:13 Oxygen Delivery Method Room Air 04/01/25 12:13 BMI result Body Mass Index 24.3 Tobacco/Smoking Status: Tobacco use Status Tobacco use date assessed 04/01/25 04/01/25 12:20 Patient Tobacco Use Status Never used Tobacco 04/01/25 12:20 e-Cigarette/Vaping Use Never Used 04/01/25 12:20 Thrive Assessment: Date of Thrive Assessment Date Thrive assessed 04/16/24 04/01/25 12:20 Const General: no acute distress HENMT Mouth: Normal oral and palatal mucosa present Resp Effort & Inspection: normal respiratory effort Auscultation: clear to auscultation bilaterally Cardio Rhythm: regular rhythm Heart sounds: S1 normal heart sound present and S2 normal heart sound present GI Inspection: Yes normal to inspection Palpation (GI): Soft to palpation Percussion: Yes normal to percussion Auscultation: normal bowel sounds Back/Spine/Pelvis Other: Paraspinal tenderness in the right lower lumbar region. Straight leg rising 90 degrees bilaterally, full range of motion in both hips, deep tendon reflexes 2+ bilaterally Coding Level of Care Code Est Pt Level 3 (11021) Diagnoses Lumbar spine pain M54.50 Assessment & Plan Assessment & Plan (1) Lumbar spine pain: Code(s): M54.50 - Low back pain, unspecified Category: Medical Plan: For count lumbar spine pain and degenerative changes on the x-ray of abdomen in 06/2024 meloxicam baclofen prescribed. Patient was advised to have physical therapy but he declined. He will continue home lower back exercises. Medications: New meloxicam 15 mg PO DAILY 10 tabs 0RF baclofen 10 mg PO BEDTIME 10 tabs 0RF
--- OUTSIDE RECORDS SUMMARY | 2025-04-01 14:42 | XMS_ITS | Clinical Summary ---
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 Name Role Phone Unavailable Primary Care Provider Unavailabl e Social History Tobacco Use Types Packs/Day Years Used Date Smoking Tobacco: Never Assessed Sex and Gender Information Value Date Recorded Sex Assigned at Not on file Legal Sex Male 8:45 AM EST Gender Identity Not on file Sexual Orientation Not on file Plan of Treatment Health Maintenance Due Date Last Done Comments DTaP,Tdap,and Td Vaccines (1 - Tdap) 1973 Pneumococcal Vaccine: 50+ Ye ars (1 of 1 - PCV) 2004 Zoster Vaccines (1 of 2) 2004 Abdominal Aortic Aneurysm (A AA) Screen 07/02/2022 Cholesterol Screening (Lipid Panel) 07/02/2022 Colorectal Cancer Screening: Colonoscopy 07/02/2022 Falls Risk Assessment 07/02/2022 Hepatitis C Screening 07/02/2022 Medicare Annual Wellness Visit 07/02/2022 Social Influencers of Health Screening 07/02/2022 Depression Screening 07/30/2024 COVID-19 Vaccine (1 - 2023-2 5 season) 2025 Influenza Vaccine (#1) 2025 RSV Immunization Adult Patie nts (1 - 1-dose 75+ series) 2029 HIB Vaccines Aged Out No longer eligi ble based on patient's age to complete this topic HPV Vaccines Aged Out No longer eligi ble based on patient's age to complete this topic Hepatitis A Vaccines Aged Out No long er eligible based on patient's age to complete this topic Hepatitis B Vaccines Aged Out No long er eligible based on patient's age to complete this topic IPV Vaccines Aged Out No longer eligi ble based on patient's age to complete this topic MMR Vaccines Aged Out No longer eligi ble based on patient's age to complete this topic Meningococcal ACWY Vaccine Aged Out N o longer eligible based on patient's age to complete this topic Meningococcal B Vaccine Aged Out No l onger eligible based on patient's age to complete this topic RSV Immunization Patients Un john 20 months Aged Out No longer eligible b ased on patient's age to complete this topic Varicella Vaccines Aged Out No longer eligible based on patient's age to complete this topic Insurance [employer] MEDICARE
--- OUTSIDE RECORDS SUMMARY | 2025-04-01 14:42 | XMS_ITS | Encounter Summary ---
Author Organization [facility] Address [address] [place] [address] Care Team Providers Care Digital Strategy Director Name Role Phone Unavailable Primary Care Provider Unavailabl e Encounter Details Date Type Department Care Team (Late st Contact Info) Description 07/17/2024 Lab Requisition [facility] - Main Lab [address] [place] [address] Kate Garber NP [address] [facility] [address] [place] [address] Elevated prostate specific antigen (PSA) Social History Tobacco Use Types Packs/Day Years Used Date Smoking Tobacco: Never Assessed Sex and Gender Information Value Date Recorded Sex Assigned at Not on file Legal Sex Male 8:45 AM EST Gender Identity Not on file Sexual Orientation Not on file documented as of this encounter Plan of Treatment Not on file documented as of this encounter Procedures Procedure Name Priority Date/Time Associated Diagnosis Comments PROSTATE SPECIFIC ANTIGEN DIAGNOSTIC Routine 07/17/2024 9:30 AM EST Elevated prostate specific antigen (PSA) documented in this encounter Results * Prostate specific antigen diagnostic (07/17/2024 9:30 AM EST) PSA 3.08 0.00 - 4.00 ng/mL LAB CHEMISTRY METHOD 07/17/2024 3:56 PM EST [facility] Blood Venous blood specimen / Unknown 07/17/2024 9:30 AM EST 07/17/2024 3:07 PM EST Narrative [facility] - 07/17/2024 3:56 PM EST The [employer] Chemiluminescent Immunoassay is used. Results obtained with different assay methods or kits cannot be used interchangeably. Results cannot be interpreted as absolute evidence of the presence or absence of malignant disease. us Kate Garber NP LAB BLOOD ORDERABLES Lucille che Result [facility] [address] [place] [address], documented in this encounter Visit Diagnoses Diagnosis Elevated prostate specific antigen (PSA) documented in this encounter
--- OUTSIDE RECORDS SUMMARY | 2025-04-01 14:42 | XMS_ITS | Encounter Summary ---
Author Organization [facility] Address [address] [place] [address] Care Team Providers Care Food Production Worker Name Role Phone Unavailable Primary Care Provider Unavailabl e Encounter Details Date Type Department Care Team (Late st Contact Info) Description 06/16/2024 Lab Requisition [facility] - Main Lab [address] [facility] [place] [address] Maris Landrum MD [address] [place] [address] Benign prostatic hyperplasia with lower urinary tract symptoms Social History Tobacco Use Types Packs/Day Years Used Date Smoking Tobacco: Never Assessed Sex and Gender Information Value Date Recorded Sex Assigned at Not on file Legal Sex Male 8:45 AM EST Gender Identity Not on file Sexual Orientation Not on file documented as of this encounter Plan of Treatment Scheduled Orders Name Type Priority Associated Diagnoses Orde r Schedule Prostate specific antigen diagnostic Lab Routine Benign prostatic hyperplasia with lower urinary tract symptoms Ordered: 06/17/2024 documented as of this encounter Procedures Procedure Name Priority Date/Time Associated Diagnosis Comments PROSTATE SPECIFIC ANTIGEN DIAGNOSTIC Routine 06/16/2024 11:19 AM EST Benign prostatic hyperplasia with lower urinary tract symptoms documented in this encounter Results * (ABNORMAL) Prostate specific antigen diagnostic (06/16/2024 11:19 AM EST) PSA 4.10(H) 0.00 - 4.00 ng/mL LAB CHEMISTRY METHOD 06/19/2024 7:48 PM EST [facility] Blood Venous blood specimen / Unknown 06/16/2024 11:19 AM EST 06/16/2024 12:47 PM EST Narrative [facility] - 06/19/2024 7:48 PM EST The Siemens Advia Centaur Chemiluminescent Immunoassay is used. Results obtained with different assay methods or kits cannot be used interchangeably. Results cannot be interpreted as absolute evidence of the presence or absence of malignant disease. us Maris Landrum MD LAB BLOOD ORDERABLES Fin al Result [facility] ([facility] [address] [place] [address], [place] [phone] documented in this encounter Visit Diagnoses Diagnosis Benign prostatic hyperplasia with lower urinary tract symptoms documented in this encounter
== END 2025-04-01 12:49 | disposition home or self-care (01) ==
LOC: HO.HMCC 12:02
PROVIDERS: PCP Internal Medicine; Visit Provider Internal Medicine
DX: M54.50 Low back pain, unspecified (principal)

== ENCOUNTER → 2025-04-01 12:02 | Outpatient (BNVA) | payer MEDICARE, SELFPAY | PROVIDERS: PCP Internal Medicine; Visit Provider Internal Medicine | DX: M54.50 Low back pain, unspecified (principal) | CPT/HCPCS: 99212 ==

== ENCOUNTER 2025-04-08 07:16 | Outpatient (REF) | payer MEDICARE, SELFPAY ==
--- NOTE | ~2025-04-08 | CT_ITS ---
EXAMINATION: CT ABDOMEN PELVIS WITHOUT IV CONTRAST HISTORY: CALCULUS KIDNEY COMPARISON: There are no prior studies available for comparison. TECHNIQUE: CT scan of the abdomen and pelvis was performed without contrast using standard departmental protocol. Coronal and sagittal reformatted images were generated and reviewed. Oral contrast material was not administered at the request of the referring physician. This CT exam was performed with one or more of the following dose reduction techniques: automated exposure control, adjustment of the mA and/or kV according to patient size, use of iterative reconstruction technique. DLP: 349 mGy-cm FINDINGS: LOWER CHEST: There is mild dependent atelectasis at both lung bases. There is no pleural effusion. CARDIOVASCULATURE: The heart is normal in size. There is no pericardial effusion. LIVER: The liver is normal in size and contour. The liver has an unremarkable unenhanced appearance. GALLBLADDER / BILE DUCTS: The gallbladder is unremarkable. There is no intra or extrahepatic biliary ductal dilatation. SPLEEN: The spleen is normal in size and has an unremarkable unenhanced appearance. PANCREAS: The pancreas has an unremarkable unenhanced appearance. ADRENAL GLANDS: Unremarkable. KIDNEYS/RETROPERITONEUM: No renal calculi are identified. There is no hydronephrosis. LYMPH NODES: No retroperitoneal lymphadenopathy is identified in the abdomen or pelvis. VASCULATURE: The abdominal aorta demonstrates atherosclerotic calcification, but is normal in caliber. MESENTERY/PERITONEUM: No free fluid. No masses. There is no free intraperitoneal gas. STOMACH: The stomach is collapsed, limiting evaluation. SMALL BOWEL: The small bowel is normal in caliber. COLON: There is a moderate amount of stool throughout the colon. There is diverticulosis of the descending and sigmoid colon, without evidence of diverticulitis. APPENDIX: Normal. URINARY BLADDER/PELVIC ORGANS: The urinary bladder is unremarkable. The prostate is enlarged. BONES / SOFT TISSUES: There is degenerative disc disease of the spine. CT/CT abdomen pelvis wo IV con IMPRESSION: Moderate amount of stool throughout the colon. Diverticulosis of the descending and sigmoid colon, without evidence of diverticulitis. Electronically signed by: Reinaldo Mo MD 04/08/2025 07:48 AM EDT
--- OUTSIDE RECORDS SUMMARY | 2025-04-08 07:20 | XMS_ITS | Encounter Summary ---
Author Organization [facility] Address [address] [place] [address] Care Team Providers Care Hogshead Liner Name Role Phone Unavailable Primary Care Provider Unavailabl e Encounter Details Date Type Department Care Team (Late st Contact Info) Description 07/17/2024 Lab Requisition [facility] - Main Lab 299 [facility] [place] [address] Kate Garber NP [address] [facility] [address] [place] [address] Elevated prostate specific antigen (PSA) Social History [...] LAB CHEMISTRY METHOD 07/17/2024 3:56 PM EST [facility] Blood Venous blood specimen / Unknown 07/17/2024 9:30 AM EST 07/17/2024 3:07 PM EST Narrative [facility] - 07/17/2024 3:56 PM EST The Siemens Advia Kashmiaur Chemiluminescent Immunoassay is used. Results obtained with different assay methods or kits cannot be used interchangeably. Results cannot be interpreted as absolute evidence of the presence or absence of malignant disease. us Kate Garber NP LAB BLOOD ORDERABLES Lucille che Result [facility] ([facility]) [facility] [address] [place] [address], documented in this encounter Visit Diagnoses Diagnosis Elevated prostate specific antigen (PSA) documented in this encounter
--- OUTSIDE RECORDS SUMMARY | 2025-04-08 07:20 | XMS_ITS | Encounter Summary ---
Author Organization [facility] Address [address] [place] [address] Care Team Providers Care Outside Residential Sales Professional Name Role Phone Unavailable Primary Care Provider Unavailabl e Encounter Details Date Type Department Care Team (Late st Contact Info) Description 06/16/2024 Lab Requisition [facility] - Main Lab 299 [facility] [place] [address] Maris Landrum MD [address] [place] [address] Benign prostatic hyperplasia with lower urinary tract [...] LAB CHEMISTRY METHOD 06/19/2024 7:48 PM EST [facility] Blood Venous blood specimen / Unknown 06/16/2024 11:19 AM EST 06/16/2024 12:47 PM EST Narrative [facility] - 06/19/2024 7:48 PM EST The Siemens Advia Centaur Chemiluminescent Immunoassay is used. Results obtained with different assay methods or kits cannot be used interchangeably. Results cannot be interpreted as absolute evidence of the presence or absence of malignant disease. us Maris Landrum MD LAB BLOOD ORDERABLES Fin al Result [facility] ([facility] [address] [place] [address], [place] [phone] documented in this encounter Visit Diagnoses Diagnosis Benign prostatic hyperplasia with lower urinary tract symptoms documented in this encounter
--- OUTSIDE RECORDS SUMMARY | 2025-04-08 07:20 | XMS_ITS | Clinical Summary ---
Author Organization [address] Address [address] [place] [phone] Phone Care Team Providers Care Post Office Markup Clerk Name Role Phone Unavailable Primary Care Provider [...]
== END 2025-04-08 07:17 | disposition home or self-care (01) ==
LOC: HO.CT 07:16
PROVIDERS: PCP Internal Medicine; Visit Provider Nurse Practitioner Family
DX: N20.0 Calculus of kidney (principal)
CPT/HCPCS: 74176

== ENCOUNTER → 2025-04-08 07:20 | Outpatient (BNV) | payer MEDICARE, SELFPAY | PROVIDERS: PCP Internal Medicine; Visit Provider Radiology Diagnostic Radiology | DX: K57.30 Diverticulosis of large intestine without perforation or abscess without bleeding (principal) | CPT/HCPCS: 74176 ==

== ENCOUNTER 2025-05-06 10:17 | Outpatient (REF) | payer MEDICARE, SELFPAY ==
[2025-05-06 13:29] LABS: MANUAL DIFF FLAG NO
[2025-05-06 13:38] LABS: Hematocrit 43.8 % (42.0-52.0); Hemoglobin 14.7 g/dl (14.0-18.0); Imm Gran Abs Auto 0.00 X10*3/uL (0.00-0.03); Imm Gran Pct Auto 0.0 % (0.0-0.4); Lymphocytes Absolute Auto 1.4 X10*3/uL (1.2-4.9); Mean Corpuscular HGB Conc 33.6 g/dl (31.0-36.0); Mean Corpuscular Hemoglobin 31.1 pg (27.0-33.0); Mean Corpuscular Volume 92.8 fL (80.0-98.0); NRBC Abs Auto 0.000 X10*3/uL (0.0-0.012); NRBC Pct Auto 0.0 /100WBC (0.0-0.2); Platelet Count 248 X10*3/uL (160-400); Red Blood Count 4.72 X10*6/uL (4.60-5.80); White Blood Count 4.0 X10*3/uL (4.8-10.8)
[2025-05-06 13:45] LABS: Appearance Urine Clear; Glucose Urine UA Negative (Negative); PH 7.0 (5.0-9.0); Specific Gravity - Urine 1.020 (1.005-1.025)
[2025-05-06 14:18] LABS: Alanine Aminotransferase 36 U/L (0-40); Albumin Level 4.5 g/dL (3.5-5.0); Alkaline Phosphatase 56 U/L (39-117); Anion Gap 10 (12-20); Aspartate Amino Transferase 44 U/L (5-37); Blood Urea Nitrogen 15 mg/dL (9-16); Calcium 9.3 mg/dL (8.4-10.2); Carbon Dioxide 28 mmol/L (22-29); Chloride 105 mmol/L (96-108); Cholesterol 154 mg/dL (<200); Estimated Glomerular Filt Rate > 60; HDL Cholesterol 56 mg/dL (>40); Potassium 4.3 mmol/L (3.3-5.1); Sodium 139 mmol/L (135-145); Total Protein 6.9 g/dL (6.5-8.0); Triglycerides 35 mg/dL (<150)
[2025-05-06 14:25] LABS: PSA,Total (Free>4and<10) 3.83 ng/mL (0.00-4.00)
== END 2025-05-06 10:18 | disposition home or self-care (01) ==
LOC: HO.HMGCLDS 10:17
PROVIDERS: PCP Internal Medicine; Visit Provider Internal Medicine
DX: Z00.00 Encounter for general adult medical examination without abnormal findings (principal); N40.0 Benign prostatic hyperplasia without lower urinary tract symptoms; E55.9 Vitamin D deficiency, unspecified; Z12.5 Encounter for screening for malignant neoplasm of prostate; Z13.6 Encounter for screening for cardiovascular disorders
CPT/HCPCS: 36415; 80053; 80061; 81001; 82306; 84153; 85025

== ENCOUNTER 2025-05-12 07:48 | Outpatient (AMB) | payer MEDICARE, SELFPAY ==
--- OUTSIDE RECORDS SUMMARY | 2025-05-12 07:50 | XMS_ITS | Encounter Summary ---
Author Organization [facility] Address [address] [place] [address] Care Team Providers Care Public Health Dentist Name Role Phone Unavailable Primary Care Provider Unavailabl e Encounter Details Date Type Department Care Team (Late st Contact Info) Description 07/17/2024 Lab Requisition [facility] - Main Lab 299 [facility] [place] [address] Kate Garber NP [address] [facility] [address] [place] [address] Elevated prostate specific antigen (PSA) Social History [...] LAB CHEMISTRY METHOD 07/17/2024 3:56 PM EST [facility] Blood Venous blood specimen / Unknown 07/17/2024 9:30 AM EST 07/17/2024 3:07 PM EST Narrative [facility] - 07/17/2024 3:56 PM EST The Siemens Advia Replenishaur Chemiluminescent Immunoassay is used. Results obtained with different assay methods or kits cannot be used interchangeably. Results cannot be interpreted as absolute evidence of the presence or absence of malignant disease. us Kate Garber NP LAB BLOOD ORDERABLES Lucille che Result [facility] ([facility]) [facility] [address] [place] [address], documented in this encounter Visit Diagnoses Diagnosis Elevated prostate specific antigen (PSA) documented in this encounter
--- OUTSIDE RECORDS SUMMARY | 2025-05-12 07:50 | XMS_ITS | Clinical Summary ---
Author Organization [address] Address [address] [place] [phone] Phone Care Team Providers Care Fund Accountant Name Role Phone Unavailable Primary Care Provider Unavailabl e Social History Tobacco Use Types Packs/Day Years Used Date Smoking Tobacco: Never Assessed Sex and Gender Information Value Date Recorded Sex Assigned at Not on file Legal Sex Male 8:45 AM EST Gender Identity Not on file Sexual Orientation Not on file Plan of Treatment Health Maintenance Due Date Last Done Comments Colorectal Cancer Screening: Colonoscopy 1954 DTaP,Tdap,and Td Vaccines (1 - Tdap) 1973 Pneumococcal Vaccine: 50+ Ye ars (1 of 1 - PCV) 2004 Zoster Vaccines (1 of 2) 2004 Abdominal Aortic Aneurysm (A AA) Screen 07/02/2022 Cholesterol Screening (Lipid Panel) 07/02/2022 Falls Risk Assessment 07/02/2022 Hepatitis C [...]
--- OUTSIDE RECORDS SUMMARY | 2025-05-12 07:50 | XMS_ITS | Encounter Summary ---
Author Organization [facility] Address [address] [place] [address] Care Team Providers Care Compounder Flavorings Name Role Phone Unavailable Primary Care Provider Unavailabl e Encounter Details Date Type Department Care Team (Late st Contact Info) Description 06/16/[address] [facility] - Main Lab [address] [facility] [place] [address] Maris Landrum MD [address] [place] [address] Benign prostatic hyperplasia with lower urinary tract [...] LAB CHEMISTRY METHOD 06/19/2024 7:48 PM EST [facility] Blood Venous blood specimen / Unknown 06/16/2024 11:19 AM EST 06/16/2024 12:47 PM EST Narrative [facility] - 06/19/2024 7:48 PM EST The Siemens Advia Centaur Chemiluminescent Immunoassay is used. Results obtained with different assay methods or kits cannot be used interchangeably. Results cannot be interpreted as absolute evidence of the presence or absence of malignant disease. us Maris Landrum MD LAB BLOOD ORDERABLES Fin al Result [facility] ([facility] [address] [place] [address], [place] [phone] documented in this encounter Visit Diagnoses Diagnosis Benign prostatic hyperplasia with lower urinary tract symptoms documented in this encounter
--- NOTE | 2025-05-12 08:09 | A.OFFPC_ITS ---
Vital Signs 05/12/25 08:10 Height 5 ft 8 in Weight 157 lb BMI 23.9 BP 118/66 Blood Pressure Location Lt brachial Position Sitting Respiration 16 Pulse 67 Pulse Source Pulse Oximeter Temp 97.5 F Temp Source Oral Pulse Oximetry (%) 100 Oxygen Delivery Method Room Air Intake Visit Reasons: PE - see comments Intake Note: Pt is here today for PE. Allergies Penicillins (PENICILLINS) Allergy (Unknown, Verified 05/12/25 08:11) SWELLING Medication List - Last Reconciled 05/12/25 by Carmen Ly MD tadalafil 2.5 mg PO DAILY Tobacco use date assessed: 05/12/25 Fall risk assessment: No Falls in past year Last assessed Fall Risk: 05/12/25 Dental Screening Dental Screen Date: 04/01/25 HPI PE - see comments HPI Details Pt presents for PE. [facility] Medical History (Updated 05/12/25 @ 08:25 by Carmen Ly MD) Annual physical exam Colon polyps Anxiety BPH (benign prostatic hyperplasia) Normal colonoscopy Surgical History History of hernia surgery Hx of colonoscopy Family History Father No problems noted. Mother No problems noted. Social History Household Members: Spouse Housing: House Alcohol intake: current Alcohol intake frequency: holidays/special occasions only Patient Tobacco Use Status: Never used Tobacco e-Cigarette/Vaping Use: Never Used service: No Current occupational status: retired Cognitive needs: No Hearing needs: No Vision needs: Yes Questionnaire PHQ-9 Over the last 2 weeks, how often have you been bothered by any of the following problems? 1. Little interest or pleasure in doing things: not at all 2. Feeling down, depressed, or hopeless: not at all 3. Trouble falling or staying asleep, or sleeping too much: not at all 4. Feeling tired or having little energy: not at all 5. Poor appetite or overeating: not at all 6. Feeling bad about yourself - or that you are a failure or have let yourself or your family down: not at all 7. Trouble concentrating on things, such as reading the newspaper or watching television: not at all 8. Moving or speaking so slowly that other people could have noticed. Or the opposite - being so fidgety or restless that you have been moving around a lot more than usual: not at all 9. Thoughts that you would be better off or of hurting yourself in some way: not at all Total score: 0 Depression Screening Interpretation: Negative Depression Screening Done: Yes 77135 - PHQ-9 Billing: Yes Source: Developed by Drs. Reinaldo Eduardo, Hang Ferro and colleagues, with an educational shira from [employer]. Thrive Questionnaire Date Thrive assessed: 04/16/24 MALLORY-7 AMB Questionnaire MALLORY-7 Date MALLORY - 7 assessed: 05/12/25 Feeling nervous, anxious, or on edge: 0 = Not at all Not being able to stop or control worryin = Not at all Worrying too much about different things: 0 = Not at all Trouble relaxin = Not at all Being so restless that it is hard to sit still: 0 = Not at all Becoming easily annoyed or irritable: 0 = Not at all Feeling afraid as if something awful might happen: 0 = Not at all Total MALLORY-7 score (0-4 normal; 5-9 mild; 10-14 moderate; 15-21 severe): 0 Source: Developed by Drs. Reinaldo Eduardo, Surekha Grace, Hang Nolasco and colleagues, with an educational shira from [employer]. MALLORY-7 Assessment Billing MALLORY-7 Assessment Tool: MALLORY-7 Assessment 59578 Review of Systems Const All systems reviewed & are unremarkable except as noted in HPI and below Eyes Reports no additional complaints ENT Reports no additional complaints Card Reports no additional complaints Resp Reports no additional complaints GI Reports no additional complaints Reports no additional complaints Physical exam (Primary Care) Vital Signs: Last Vital Signs Temp 97.5 F 05/12/25 08:10 Pulse 67 05/12/25 08:10 Resp 16 05/12/25 08:10 BP 118/66 05/12/25 08:10 Pulse Ox 100 05/12/25 08:10 Oxygen Delivery Method Room Air 05/12/25 08:10 BMI result Body Mass Index 23.9 Tobacco/Smoking Status: Tobacco use Status Tobacco use date assessed 05/12/25 05/12/25 08:15 Patient Tobacco Use Status Never used Tobacco 05/12/25 08:15 e-Cigarette/Vaping Use Never Used 05/12/25 08:15 PHQ-9: PHQ-9 Score PHQ-9: Total score 0 05/12/25 08:15 Depression Screening Interpretation: Negative Thrive Assessment: Date of Thrive Assessment Date Thrive assessed 04/16/24 05/12/25 08:15 Const General: no acute distress HENMT Head: Yes normal to inspection Face and sinus: Yes normal facial exam Mouth: Normal oral and palatal mucosa present Throat: Yes posterior oropharynx normal Eyes General: appearance normal, both eyes and all related structures Neck Neck: Yes no lymphadenopathy and Yes supple Resp Effort & Inspection: normal respiratory effort Auscultation: clear to auscultation bilaterally Cardio Rhythm: regular rhythm Heart sounds: S1 normal heart sound present and S2 normal heart sound present GI Inspection: Yes normal to inspection Palpation (GI): Soft to palpation Percussion: Yes normal to percussion Auscultation: normal bowel sounds Coding Level of Care Code Est Pt Prev Care >65y(12736) Diagnoses Colon polyps K63.5 Annual physical exam Z00.00 Additional Codes MALLORY-7 Assessment Billing - MALLORY-7 Assessment Tool: MALLORY-7 Assessment 89890 ([id number]) PHQ-9 - 84952 - PHQ-9 Billing: Yes ([id number]) Assessment & Plan Assessment & Plan (1) Colon polyps: Comment: 11/2023 TA and serrated adenoma, repeat 3 yrs, Dr. Bates Code(s): K63.5 - Polyp of colon Category: Medical Plan: due for colonoscopy in 2026 (2) Annual physical exam: Code(s): Z00.00 - Encounter for general adult medical examination without abnormal findings Category: Medical Plan: well balanced diet, regular exercise discussed with pt Orders: Orders Comprehensive [place]. Panel Fast 1 Year Z00.00 - Encounter for general adult medical examination without abnormal findings UA w Microscopic 1 Year Z00.00 - Encounter for general adult medical examin ation without abnormal findings Complete Blood Count Auto Diff 1 Year Z00.00 - Encounter for general adult medical examination without abnormal findings Lipid Panel 1 Year Z00.00 - Encounter for general adult medical examination without abnormal findings PSA,Total (Free>4and<10) 1 Year Z00.00 - Encounter for general adult medical examination without abnormal findings Medications: Discontinued mirtazapine Discontinued Reason: Doctor's Order 7.5 mg PO BEDTIME 90 tabs 1RF
[2025-05-12 08:10] VITALS: BP 118/66; PULSE 67; RESP 16; TEMP 36.4; O2SAT 100; BMI 23.9
== END 2025-05-12 08:51 | disposition home or self-care (01) ==
LOC: HO.HMCC 07:48
PROVIDERS: PCP Internal Medicine; Visit Provider Internal Medicine
DX: K63.5 Polyp of colon (principal); Z00.00 Encounter for general adult medical examination without abnormal findings

== ENCOUNTER → 2025-05-12 07:48 | Outpatient (BNVA) | payer MEDICARE, SELFPAY | PROVIDERS: PCP Internal Medicine; Visit Provider Internal Medicine | DX: Z00.00 Encounter for general adult medical examination without abnormal findings (principal); K63.5 Polyp of colon | CPT/HCPCS: 96127; 99397 ==